=== PATIENT | male | born 1975 | race Caucasian/White ===

== ENCOUNTER 2018-07-30 13:58 | Emergency (ER) | payer OTHER, SELFPAY ==
[2018-07-30 14:04] VITALS: BP 140/94; PULSE 56; RESP 18; TEMP 36.7; O2SAT 100; BMI 27.8
--- NOTE | 2018-07-30 14:50 | DI.RAD.S_ITS ---
PROCEDURE: XR CHEST 1V INDICATIONS: chest pain TECHNIQUE: One view of the chest was acquired. COMPARISON: None. FINDINGS: Surgical changes and devices: None. Lungs and pleura: Lungs are clear. No pleural effusions or pneumothorax. Mediastinum: Mediastinal contours appear normal. Heart size is normal. Bones and chest wall: No suspicious bony lesions. Overlying soft tissues appear unremarkable. IMPRESSION: No evidence acute pulmonary process. Dictated by: Declan Gates M.D. on 07/30/2018 at 15:22 Approved by: Declan Gates M.D. on 07/30/2018 at 15:23
[2018-07-30 14:56] LABS: Add Manual Diff / Slide Review NO; Basophils Absolute Auto 100 /uL (0-100); Basophils Percent Auto 0.9 % (0-2); Eosinophils Absolute Auto 100 /uL (0-450); Eosinophils Percent Auto 1.9 % (2-4); Hematocrit 46.6 % (41-53); Hemoglobin 15.8 g/dL (13.5-17.5); Lymphocytes Absolute Auto 2500 /uL (1100-4500); Lymphocytes Percent Auto 32.6 % (25-40); Mean Corpuscular HGB Conc 33.8 % (30-36); Mean Corpuscular Hemoglobin 29.7 PG (26-34); Mean Corpuscular Volume 87.8 fL (80-100); Monocytes Absolute Auto 800 /uL (0-900); Monocytes Percent Auto 10.2 % (3-14); Neutrophils Absolute Auto 4200 /uL (1500-7000); Neutrophils Percent Auto 54.4 % (50-75); Platelet Count 295 X10^3/uL (150-400); Red Blood Cell Count 5.31 X10^6/uL (4.5-5.9); Red Cell Distribution Width 13.4 % (11.6-14.8); White Blood Cell Count 7.8 X10^3/uL (4.5-11.0)
[2018-07-30 14:57] LABS: Prothrombin Time 11.9 SECONDS (10.1-12.7)
[2018-07-30] MEDS: ASPIRIN 81 MG TAB 324 MG PO (14:58)
[2018-07-30 15:00] LABS: PTT Partial Thromboplastin Tim 27 SECONDS (26.4-36.2)
[2018-07-30 15:01] LABS: Alanine Aminotransferase 62 IU/L (21-72); Albumin 5.1 g/dL (3.5-5.0); Albumin Globulin Ratio 1.5 (1.0-2.8); Alkaline Phosphatase 51 U/L (38-126); Amylase 79 U/L (30-110); Aspartate Aminotransferase 40 IU/L (17-59); BUN Creatinine Ratio 21.3 (6-22); Bilirubin Total 0.8 mg/dL (0.2-1.3); Blood Urea Nitrogen 17 mg/dL (9-20); Calcium 10.1 mg/dL (8.4-10.2); Carbon Dioxide 29 mmol/L (22-32); Chloride 100 mmol/L (98-107); Estimated Glomerular Filt Rate > 60.0 mL/min (>60); Globulin 3.5 g/dL (1.7-4.1); Glucose 81 mg/dL (70-100); HEMOLYSIS < 15 (0-50); Lipase 71 U/L (23-300); Sodium 139 mmol/L (137-145); Total Protein 8.6 g/dL (6.3-8.2)
--- NOTE | 2018-07-30 15:04 | ED.CHESTPAIN ---
HPI - Chest Pain <MALCOLM Rosenthal - Last Filed: 07/30/18 18:34> General Chief Complaint: Chest Pain Stated Complaint: CHEST PAIN Time Seen by Provider: 07/30/18 14:30 Source: patient and family Mode of arrival: ambulatory Limitations: no limitations History of Present Illness HPI narrative: Patient is a 42-year-old male nonsmoker presents with his for chief complaint of chest pain. he was evaluated by [facility] as he had pain in his jaw chest and left shoulder at 9:30 a.m. this morning. This happened immediately after intercourse. He states he felt woozy, sweaty, and lightheaded for a few minutes. He states he is essentially pain-free in the emergency department. He has never had any episodes like this before. He is being treated for high blood pressure and anxiety. He wonders if he had an anxiety attack. He denies any shortness of breath, palpitations or swelling of his extremities. Related Data Home Medications Medication Instructions Recorded Confirmed atenolol 50 mg PO DAILY 07/30/18 07/30/18 Previous Rx's Medication Instructions Recorded citalopram [Celexa] 20 mg PO QDAY #90 tab 08/27/16 Allergies Allergy/AdvReac Type Severity Reaction Status Date / Time bee venom protein (honey bee) Allergy Severe Anaphylaxis Verified 07/30/18 15:00 [BEE VENOM PROTEIN (HONEY BEE)] Review of Systems <[facility] - Last Filed: 07/30/18 18:34> Review of Systems GENERAL: Denies chills, fatigue, malaise, fever, sweats. HEENT: Denies sinus pain, ear pain, sore throat, difficulty swallowing, dizziness. RESPIRATORY: Denies dyspnea, cough, wheezing, hemoptysis, sputum. CARDIOVASCULAR: See HPI GASTROINTESTINAL: Denies nausea, vomiting, abdominal pain, diarrhea, constipation, melena. : Denies dysuria, frequency, incontinence, hematuria, urinary retention. MUSCULOSKELETAL: denies weakness, joint pain, or bony pain SKIN: Denies rash, skin lesions, or other NEUROLOGIC: Denies weakness, headache, numbness, change in speech, confusion, seizures, incoordination. PSYCHIATRIC: No concerning psychosocial issues. 12 point review of systems is negative except for those stated above Exam <MALCOLM Rosenthal - Last Filed: 07/30/18 18:34> Narrative Exam Narrative: GENERAL: This is a well-nourished, well-developed patient, lying on stretcher HEAD: Atraumatic. Normocephalic. No temporal or scalp tenderness. EYES: Pupils equal round and reactive. Extraocular motions intact. No scleral icterus. No injection or drainage. ENT: Nose without bleeding, purulent drainage or septal hematoma. Throat without erythema, tonsillar hypertrophy or exudate. Uvula midline. Airway patent. NECK: Trachea midline. No JVD or lymphadenopathy. Supple, nontender, no meningeal signs. CARDIOVASCULAR: Regular rate and rhythm without murmurs, gallops, or rubs. RESPIRATORY: Clear to auscultation. Breath sounds equal bilaterally. No wheezes, rales, or rhonchi. No cough. No increased respiratory effort. GASTROINTESTINAL: Abdomen soft, non-tender, nondistended. No hepato-splenomegaly, or palpable masses. No guarding. active bowel sounds all 4 quadrants. No palpable pulsatile masses. EXTREMITIES: No clubbing, cyanosis, or edema. No joint tenderness, effusion, or edema noted. BACK: Nontender without deformity or crepitance. No flank tenderness. NEURO: AOx3. Using all extremities bilaterally. SKIN: No rash or erythema. Initial Vital Signs Initial Vital Signs: Vital Signs Temperature 98.1 F 07/30/18 14:04 Pulse Rate 56 L 07/30/18 14:04 Respiratory Rate 18 07/30/18 14:04 Blood Pressure 140/94 H 07/30/18 14:04 Pulse Oximetry 100 07/30/18 14:04 <Nidhi Nelson DO - Last Filed: 07/31/18 07:42> Initial Vital Signs Initial Vital Signs: Vital Signs Temperature 98.1 F 07/30/18 14:04 Pulse Rate 56 L 07/30/18 14:04 Respiratory Rate 18 07/30/18 14:04 Blood Pressure 140/94 H 07/30/18 14:04 Pulse Oximetry 100 07/30/18 14:04 Course <AMADOR Rosenthal-BC - Last Filed: 07/30/18 18:34> Orders Ordered: Discontinued Medications Aspirin (Aspirin Chew) 324 mg PO NOW ONE Stop: 07/30/18 14:51 Last Admin: 07/30/18 14:58 Dose: 324 mg Heparin Sodium (Porcine) (Heparin) 5,000 unit IV NOW ONE Stop: 07/30/18 15:58 Last Admin: 07/30/18 16:23 Dose: 5,000 unit Heparin Sodium/Dextrose (Heparin Drip) 25,000 unit in 500 mls @ 20 mls/hr IV CONT MARSHA; Protocol Last Titration: 07/30/18 18:32 Dose: 0 units/hr, 0 mls/hr Admin: 07/30/18 16:22 Dose: 1,000 units/hr, 20 mls/hr Sodium Chloride (Normal Saline 0.9%) 1,000 mls @ 100 mls/hr IV CONT MARSHA Last Infusion: 07/30/18 18:33 Dose: 0 mls/hr Admin: 07/30/18 16:22 Dose: 100 mls/hr Reevaluation(s) Reevaluation #1: I spoke with the patient regarding his positive cardiac enzymes, plan for transfer, concern for [place]. Patient had no questions or concerns. States he has no pain at this point time. Time: 16:00 Consultations Consultation #1: I spoke with Dr. Weber from [facility] regarding patient's need for cardiac care and transfer. Time: 16:13 Vital Signs - 8 hr 07/30/18 14:04 07/30/18 16:30 07/30/18 17:30 Temperature 98.1 F Pulse Rate 56 L 59 L 58 L Respiratory Rate 18 11 L 14 Blood Pressure 140/94 H Blood Pressure [Right Arm] 126/87 128/84 Pulse Oximetry 100 99 98 07/30/18 18:00 Temperature Pulse Rate 59 L Respiratory Rate 20 Blood Pressure Blood Pressure [Right Arm] 133/92 H Pulse Oximetry 98 <Nidhi Nelson DO - Last Filed: 07/31/18 07:42> Orders Ordered: Discontinued Medications Aspirin (Aspirin Chew) 324 mg PO NOW ONE Stop: 07/30/18 14:51 Last Admin: 07/30/18 14:58 Dose: 324 mg Heparin Sodium (Porcine) (Heparin) 5,000 unit IV NOW ONE Stop: 07/30/18 15:58 Last Admin: 07/30/18 16:23 Dose: 5,000 unit Heparin Sodium/Dextrose (Heparin Drip) 25,000 unit in 500 mls @ 20 mls/hr IV CONT MARSHA; Protocol Last Titration: 07/30/18 18:32 Dose: 0 units/hr, 0 mls/hr Admin: 07/30/18 16:22 Dose: 1,000 units/hr, 20 mls/hr Sodium Chloride (Normal Saline 0.9%) 1,000 mls @ 100 mls/hr IV CONT MARSHA Last Infusion: 07/30/18 18:33 Dose: 0 mls/hr Admin: 07/30/18 16:22 Dose: 100 mls/hr Vital Signs - 8 hr 07/30/18 14:04 07/30/18 16:30 07/30/18 17:30 Temperature 98.1 F Pulse Rate 56 L 59 L 58 L Respiratory Rate 18 11 L 14 Blood Pressure 140/94 H Blood Pressure [Right Arm] 126/87 128/84 Pulse Oximetry 100 99 98 07/30/18 18:00 Temperature Pulse Rate 59 L Respiratory Rate 20 Blood Pressure Blood Pressure [Right Arm] 133/92 H Pulse Oximetry 98 MDM - Chest Pain <AMADOR Rosenthal- - Last Filed: 07/30/18 18:34> Lab Data Result diagrams: 07/30/18 14:35 07/30/18 14:35 Lab Results 07/30/18 07/30/18 07/30/18 Range/Units 14:35 14:35 14:35 WBC 7.8 (4.5-11.0) X10^3/uL RBC 5.31 (4.5-5.9) X10^6/uL Hgb 15.8 (13.5-17.5) g/dL Hct 46.6 (41-53) % MCV 87.8 (80-100) fL MCH 29.7 (26-34) PG MCHC 33.8 (30-36) % RDW 13.4 (11.6-14.8) % Plt Count 295 (150-400) X10^3/uL Neut % (Auto) 54.4 (50-75) % Lymph % (Auto) 32.6 (25-40) % [place] % (Auto) 10.2 (3-14) % Eos % (Auto) 1.9 L (2-4) % Baso % (Auto) 0.9 (0-2) % Neut # (Auto) 4200 (6920-7275) /uL Lymph # (Auto) 2500 (8293-3295) /uL [place] # (Auto) 800 (0-900) /uL Eos # (Auto) 100 (0-450) /uL Baso # (Auto) 100 (0-100) /uL PT 11.9 (10.1-12.7) SECONDS INR 1.0 (0.9-1.3) APTT 27 (26.4-36.2) SECONDS Sodium 139 (137-145) mmol/L Potassium 5.0 (3.4-5.1) mmol/L Chloride 100 (98-107) mmol/L Carbon Dioxide 29 (22-32) mmol/L BUN 17 (9-20) mg/dL Creatinine 0.80 (0.66-1.25) mg/dL Estimated GFR > 60.0 (>60) mL/min BUN/Creatinine Ratio 21.3 (6-22) Glucose 81 (70-100) mg/dL Calcium 10.1 (8.4-10.2) mg/dL Total Bilirubin 0.8 (0.2-1.3) mg/dL AST 40 (17-59) IU/L ALT 62 (21-72) IU/L Alkaline Phosphatase 51 (38-126) U/L Total Creatine Kinase (55-170) U/L CK-MB (CK-2) 4.95 H (<2.37) ng/mL CK-MB (CK-2) Rel Index 3.2 (1.5-5.0) % Troponin I 1.080 H* (0.01-0.034) ng/mL Total Protein 8.6 H (6.3-8.2) g/dL Albumin 5.1 H (3.5-5.0) g/dL Globulin 3.5 (1.7-4.1) g/dL Albumin/Globulin Ratio 1.5 (1.0-2.8) Amylase 79 (30-110) U/L Lipase 71 (23-300) U/L 07/30/18 07/30/18 Range/Units 14:35 15:35 WBC (4.5-11.0) X10^3/uL RBC (4.5-5.9) X10^6/uL Hgb (13.5-17.5) g/dL Hct (41-53) % MCV (80-100) fL MCH (26-34) PG MCHC (30-36) % RDW (11.6-14.8) % Plt Count (150-400) X10^3/uL Neut % (Auto) (50-75) % Lymph % (Auto) (25-40) % [place] % (Auto) (3-14) % Eos % (Auto) (2-4) % Baso % (Auto) (0-2) % Neut # (Auto) (6668-8342) /uL Lymph # (Auto) (2571-9617) /uL [place] # (Auto) (0-900) /uL Eos # (Auto) (0-450) /uL Baso # (Auto) (0-100) /uL PT (10.1-12.7) SECONDS INR (0.9-1.3) APTT 27 (26.4-36.2) SECONDS Sodium (137-145) mmol/L Potassium (3.4-5.1) mmol/L Chloride (98-107) mmol/L Carbon Dioxide (22-32) mmol/L BUN (9-20) mg/dL Creatinine (0.66-1.25) mg/dL Estimated GFR (>60) mL/min BUN/Creatinine Ratio (6-22) Glucose (70-100) mg/dL Calcium (8.4-10.2) mg/dL Total Bilirubin (0.2-1.3) mg/dL AST (17-59) IU/L ALT (21-72) IU/L Alkaline Phosphatase (38-126) U/L Total Creatine Kinase 156 (55-170) U/L CK-MB (CK-2) 6.01 H (<2.37) ng/mL CK-MB (CK-2) Rel Index 3.9 (1.5-5.0) % Troponin I 1.580 H* (0.01-0.034) ng/mL Total Protein (6.3-8.2) g/dL Albumin (3.5-5.0) g/dL Globulin (1.7-4.1) g/dL Albumin/Globulin Ratio (1.0-2.8) Amylase (30-110) U/L Lipase (23-300) U/L Urine Dip Bedside Urine Glucose Negative Bedside Urine Bilirubin - Negative Bedside Urine Ketone - Negative Urine Specific [place] 1.020 Bedside Urine Occult Blood - Negative Bedside Urine pH 6.5 Bedside Urine Protein - Negative Bedside Urine Urobilinogen - Negative Bedside Urine Nitrite - Negative Bedside Urine Leukocytes - Negative Esterase ECG Data Attestation: I personally reviewed and interpreted this ECG as follows: Interpretation: 14:05 Sinus bradycardia. Ventricular rate 56. No ectopy noted. No ST elevation or depression noted. viewed by Omar. 15:58 sinus bradycardia. Ventricular rate 53. No ST elevation or depression. No ectopy noted.viewed by Omar MDM Narrative Medical decision making narrative: The patient is a 42-year-old male who presents with post coital episode of chest pain joint pain and back pain. He had a normal EKG. However he had a positive troponin at 1.080. At that point he had a repeat EKG, which continued to show no ST elevation or depression. Given his elevated troponin, risk factor of hypertension and family history, [facility] was contacted regarding transferring the patient to a facility with cardiac care. I spoke with Dr. Weber. The patient was given aspirin upon arrival to the emergency department. He was given heparin bolus as well as a heparin drip. He remained pain-free throughout his stay in the emergency department. His remained at his bedside. The patient was transferred to [facility] ambulance at 6:30 p.m.. Patient is pain-free at this point time. Troponin increased to 1.5. <Nidhi Nelson, DO - Last Filed: 07/31/18 07:42> Lab Data Attestation: I reviewed the patient's lab results. Lab Results 07/30/18 07/30/18 07/30/18 Range/Units 14:35 14:35 14:35 WBC 7.8 (4.5-11.0) X10^3/uL RBC 5.31 (4.5-5.9) X10^6/uL Hgb 15.8 (13.5-17.5) g/dL Hct 46.6 (41-53) % MCV 87.8 (80-100) fL MCH 29.7 (26-34) PG MCHC 33.8 (30-36) % RDW 13.4 (11.6-14.8) % Plt Count 295 (150-400) X10^3/uL Neut % (Auto) 54.4 (50-75) % Lymph % (Auto) 32.6 (25-40) % [place] % (Auto) 10.2 (3-14) % Eos % (Auto) 1.9 L (2-4) % Baso % (Auto) 0.9 (0-2) % Neut # (Auto) 4200 (4478-7683) /uL Lymph # (Auto) 2500 (9993-6053) /uL [place] # (Auto) 800 (0-900) /uL Eos # (Auto) 100 (0-450) /uL Baso # (Auto) 100 (0-100) /uL PT 11.9 (10.1-12.7) SECONDS INR 1.0 (0.9-1.3) APTT 27 (26.4-36.2) SECONDS Sodium 139 (137-145) mmol/L Potassium 5.0 (3.4-5.1) mmol/L Chloride 100 (98-107) mmol/L Carbon Dioxide 29 (22-32) mmol/L BUN 17 (9-20) mg/dL Creatinine 0.80 (0.66-1.25) mg/dL Estimated GFR > 60.0 (>60) mL/min BUN/Creatinine Ratio 21.3 (6-22) Glucose 81 (70-100) mg/dL Calcium 10.1 (8.4-10.2) mg/dL Total Bilirubin 0.8 (0.2-1.3) mg/dL AST 40 (17-59) IU/L ALT 62 (21-72) IU/L Alkaline Phosphatase 51 (38-126) U/L Total Creatine Kinase (55-170) U/L CK-MB (CK-2) 4.95 H (<2.37) ng/mL CK-MB (CK-2) Rel Index 3.2 (1.5-5.0) % Troponin I 1.080 H* (0.01-0.034) ng/mL Total Protein 8.6 H (6.3-8.2) g/dL Albumin 5.1 H (3.5-5.0) g/dL Globulin 3.5 (1.7-4.1) g/dL Albumin/Globulin Ratio 1.5 (1.0-2.8) Amylase 79 (30-110) U/L Lipase 71 (23-300) U/L 07/30/18 07/30/18 Range/Units 14:35 15:35 WBC (4.5-11.0) X10^3/uL RBC (4.5-5.9) X10^6/uL Hgb (13.5-17.5) g/dL Hct (41-53) % MCV (80-100) fL MCH (26-34) PG MCHC (30-36) % RDW (11.6-14.8) % Plt Count (150-400) X10^3/uL Neut % (Auto) (50-75) % Lymph % (Auto) (25-40) % [place] % (Auto) (3-14) % Eos % (Auto) (2-4) % Baso % (Auto) (0-2) % Neut # (Auto) (9698-7044) /uL Lymph # (Auto) (7782-8165) /uL [place] # (Auto) (0-900) /uL Eos # (Auto) (0-450) /uL Baso # (Auto) (0-100) /uL PT (10.1-12.7) SECONDS INR (0.9-1.3) APTT 27 (26.4-36.2) SECONDS Sodium (137-145) mmol/L Potassium (3.4-5.1) mmol/L Chloride (98-107) mmol/L Carbon Dioxide (22-32) mmol/L BUN (9-20) mg/dL Creatinine (0.66-1.25) mg/dL Estimated GFR (>60) mL/min BUN/Creatinine Ratio (6-22) Glucose (70-100) mg/dL Calcium (8.4-10.2) mg/dL Total Bilirubin (0.2-1.3) mg/dL AST (17-59) IU/L ALT (21-72) IU/L Alkaline Phosphatase (38-126) U/L Total Creatine Kinase 156 (55-170) U/L CK-MB (CK-2) 6.01 H (<2.37) ng/mL CK-MB (CK-2) Rel Index 3.9 (1.5-5.0) % Troponin I 1.580 H* (0.01-0.034) ng/mL Total Protein (6.3-8.2) g/dL Albumin (3.5-5.0) g/dL Globulin (1.7-4.1) g/dL Albumin/Globulin Ratio (1.0-2.8) Amylase (30-110) U/L Lipase (23-300) U/L Urine Dip Bedside Urine Glucose Negative Bedside Urine Bilirubin - Negative Bedside Urine Ketone - Negative Urine Specific [place] 1.020 Bedside Urine Occult Blood - Negative Bedside Urine pH 6.5 Bedside Urine Protein - Negative Bedside Urine Urobilinogen - Negative Bedside Urine Nitrite - Negative Bedside Urine Leukocytes - Negative Esterase Imaging Data Chest x-ray: Radiologist's impression: PROCEDURE: XR CHEST 1V INDICATIONS: chest pain TECHNIQUE: One view of the chest was acquired. COMPARISON: None. FINDINGS: Surgical changes and devices: None. Lungs and pleura: Lungs are clear. No pleural effusions or pneumothorax. Mediastinum: Mediastinal contours appear normal. Heart size is normal. Bones and chest wall: No suspicious bony lesions. Overlying soft tissues appear unremarkable. IMPRESSION: No evidence acute pulmonary process. Dictated by: Declan Gates M.D. on 07/30/2018 at 15:22 ECG Data Attestation: I personally reviewed and interpreted this ECG as follows: Interpretation: EKG 1. Sinus rhythm rate [address] changes no T-wave inversions low voltage noted in lead 3 and AVF EKG 2. Sinus rhythm rate 53 similar to prior no ST changes Discharge Plan Departure Patient Disposition: [facility] Clinical Impression: Acute non-ST elevation myocardial infarction (NSTEMI) Discharge Date/Time: 07/30/18 18:46 Interventions: ED Discharge Assessment Last Done: 07/30/18 18:44 Prescriptions: No Action citalopram [Celexa] 20 MG tablet 20 mg PO QDAY Qty: 90 RF: 3 atenolol 50 mg Tablet 50 mg PO DAILY RF: 0 <Nidhi Nelson DO - Last Filed: 07/31/18 07:42> Cosign ED Attending Coskaciature Attestation: I was immediately available in the department for consultation. Documentation has been reviewed. I agree with assessment and plan. I worked alongside Pippa Monroy. Patient's signs and symptoms were concerning. Troponin is positive, then repeat troponin was rising. Patient was started on heparin and given aspirin. Transferred to [facility] per [facility]. Patient remained stable while in the EDAnd chest pain free.
--- NOTE | 2018-07-30 15:08 | ED_ITS ---
HPI - Chest Pain <YOVANA Rosenthal - Last Filed: 07/30/18 18:34> General Chief Complaint: Chest Pain Stated Complaint: CHEST PAIN Time Seen by Provider: 07/30/18 14:30 Source: patient and family Mode of arrival: ambulatory Limitations: no limitations History of Present Illness HPI narrative: Patient is a 42-year-old male nonsmoker presents with his for chief complaint of chest pain. he was evaluated by [facility] as he had pain in his jaw chest and left shoulder at 9:30 a.m. this morning. This happened immediately after intercourse. He states he felt woozy, sweaty, and lightheaded for a few minutes. He states he is essentially pain-free in the emergency department. He has never had any episodes like this before. He is being treated for high blood pressure and anxiety. He wonders if he had an anxiety attack. He denies any shortness of breath, palpitations or swelling of his extremities. Related Data Home Medications Medication Instructions Recorded Confirmed atenolol 50 mg PO DAILY 07/30/18 07/30/18 Previous Rx's Medication Instructions Recorded citalopram [Celexa] 20 mg PO QDAY #90 tab 08/27/16 Allergies Allergy/AdvReac Type Severity Reaction Status Date / Time bee venom protein (honey bee) Allergy Severe Anaphylaxis Verified 07/30/18 15:00 [BEE VENOM PROTEIN (HONEY BEE)] Review of Systems <MALCOLM Rosenthal - Last Filed: 07/30/18 18:34> Review of Systems GENERAL: Denies chills, fatigue, malaise, fever, sweats. HEENT: Denies sinus pain, ear pain, sore throat, difficulty swallowing, dizzines s. RESPIRATORY: Denies dyspnea, cough, wheezing, hemoptysis, sputum. CARDIOVASCULAR: See HPI GASTROINTESTINAL: Denies nausea, vomiting, abdominal pain, diarrhea, constipation, melena. : Denies dysuria, frequency, incontinence, hematuria, urinary retention. MUSCULOSKELETAL: denies weakness, joint pain, or bony pain SKIN: Denies rash, skin lesions, or other NEUROLOGIC: Denies weakness, headache, numbness, change in speech, confusion, seizures, incoordination. PSYCHIATRIC: No concerning psychosocial issues. 12 point review of systems is negative except for those stated above Exam <YOVANA Rosenthal - Last Filed: 07/30/18 18:34> Narrative Exam Narrative: GENERAL: This is a well-nourished, well-developed patient, lying on stretcher HEAD: Atraumatic. Normocephalic. No temporal or scalp tenderness. EYES: Pupils equal round and reactive. Extraocular motions intact. No scleral icterus. No injection or drainage. ENT: Nose without bleeding, purulent drainage or septal hematoma. Throat without erythema, tonsillar hypertrophy or exudate. Uvula midline. Airway patent. NECK: Trachea midline. No JVD or lymphadenopathy. Supple, nontender, no meningeal signs. CARDIOVASCULAR: Regular rate and rhythm without murmurs, gallops, or rubs. RESPIRATORY: Clear to auscultation. Breath sounds equal bilaterally. No wheezes, rales, or rhonchi. No cough. No increased respiratory effort. GASTROINTESTINAL: Abdomen soft, non-tender, nondistended. No hepato- splenomegaly, or palpable masses. No guarding. active bowel sounds all 4 quadrants. No palpable pulsatile masses. EXTREMITIES: No clubbing, cyanosis, or edema. No joint tenderness, effusion, or edema noted. BACK: Nontender without deformity or crepitance. No flank tenderness. NEURO: AOx3. Using all extremities bilaterally. SKIN: No rash or erythema. Initial Vital Signs Initial Vital Signs: Vital Signs Temperature 98.1 F 07/30/18 14:04 Pulse Rate 56 L 07/30/18 14:04 Respiratory Rate 18 07/30/18 14:04 Blood Pressure 140/94 H 07/30/18 14:04 Pulse Oximetry 100 07/30/18 14:04 <Nidhi Nelson DO - Last Filed: 07/31/18 07:42> Initial Vital Signs Initial Vital Signs: Vital Signs Temperature 98.1 F 07/30/18 14:04 Pulse Rate 56 L 07/30/18 14:04 Respiratory Rate 18 07/30/18 14:04 Blood Pressure 140/94 H 07/30/18 14:04 Pulse Oximetry 100 07/30/18 14:04 Course <YOVANA Rosenthal - Last Filed: 07/30/18 18:34> Orders Ordered: Discontinued Medications Aspirin (Aspirin Chew) 324 mg PO NOW ONE Stop: 07/30/18 14:51 Last Admin: 07/30/18 14:58 Dose: 324 mg Heparin Sodium (Porcine) (Heparin) 5,000 unit IV NOW ONE Stop: 07/30/18 15:58 Last Admin: 07/30/18 16:23 Dose: 5,000 unit Heparin Sodium/Dextrose (Heparin Drip) 25,000 unit in 500 mls @ 20 mls/hr IV CONT MARSHA; Protocol Last Titration: 07/30/18 18:32 Dose: 0 units/hr, 0 mls/hr Admin: 07/30/18 16:22 Dose: 1,000 units/hr, 20 mls/hr Sodium Chloride (Normal Saline 0.9%) 1,000 mls @ 100 mls/hr IV CONT MARSHA Last Infusion: 07/30/18 18:33 Dose: 0 mls/hr Admin: 07/30/18 16:22 Dose: 100 mls/hr Reevaluation(s) Reevaluation #1: I spoke with the patient regarding his positive cardiac enzymes, plan for transfer, concern for [place]. Patient had no questions or concerns. States he has no pain at this point time. Time: 16:00 Consultations Consultation #1: I spoke with Dr. Weber from [facility] regarding patient's need for cardiac care and transfer. Time: 16:13 Vital Signs - 8 hr 07/30/18 14:04 07/30/18 16:30 07/30/18 17:30 Temperature 98.1 F Pulse Rate 56 L 59 L 58 L Respiratory Rate 18 11 L 14 Blood Pressure 140/94 H Blood Pressure [Right Arm] 126/87 128/84 Pulse Oximetry 100 99 98 07/30/18 18:00 Temperature Pulse Rate 59 L Respiratory Rate 20 Blood Pressure Blood Pressure [Right Arm] 133/92 H Pulse Oximetry 98 <Nidhi Nelson DO - Last Filed: 07/31/18 07:42> Orders Ordered: Discontinued Medications Aspirin (Aspirin Chew) 324 mg PO NOW ONE Stop: 07/30/18 14:51 Last Admin: 07/30/18 14:58 Dose: 324 mg Heparin Sodium (Porcine) (Heparin) 5,000 unit IV NOW ONE Stop: 07/30/18 15:58 Last Admin: 07/30/18 16:23 Dose: 5,000 unit Heparin Sodium/Dextrose (Heparin Drip) 25,000 unit in 500 mls @ 20 mls/hr IV CONT MARSHA; Protocol Last Titration: 07/30/18 18:32 Dose: 0 units/hr, 0 mls/hr Admin: 07/30/18 16:22 Dose: 1,000 units/hr, 20 mls/hr Sodium Chloride (Normal Saline 0.9%) 1,000 mls @ 100 mls/hr IV CONT MARSHA Last Infusion: 07/30/18 18:33 Dose: 0 mls/hr Admin: 07/30/18 16:22 Dose: 100 mls/hr Vital Signs - 8 hr 07/30/18 14:04 07/30/18 16:30 07/30/18 17:30 Temperature 98.1 F Pulse Rate 56 L 59 L 58 L Respiratory Rate 18 11 L 14 Blood Pressure 140/94 H Blood Pressure [Right Arm] 126/87 128/84 Pulse Oximetry 100 99 98 07/30/18 18:00 Temperature Pulse Rate 59 L Respiratory Rate 20 Blood Pressure Blood Pressure [Right Arm] 133/92 H Pulse Oximetry 98 MDM - Chest Pain <AMADOR Rosenthal- - Last Filed: 07/30/18 18:34> Lab Data Result diagrams: 07/30/18 14:35 07/30/18 14:35 Lab Results 07/30/18 07/30/18 07/30/18 Range/Units 14:35 14:35 14:35 WBC 7.8 (4.5-11.0) X10^3/uL RBC 5.31 (4.5-5.9) X10^6/uL Hgb 15.8 (13.5-17.5) g/dL Hct 46.6 (41-53) % MCV 87.8 (80-100) fL MCH 29.7 (26-34) PG MCHC 33.8 (30-36) % RDW 13.4 (11.6-14.8) % Plt Count 295 (150-400) X10^3/uL Neut % (Auto) 54.4 (50-75) % Lymph % (Auto) 32.6 (25-40) % Mclennan % (Auto) 10.2 (3-14) % Eos % (Auto) 1.9 L (2-4) % Baso % (Auto) 0.9 (0-2) % Neut # (Auto) 4200 (7270-7340) /uL Lymph # (Auto) 2500 (4554-4757) /uL Mclennan # (Auto) 800 (0-900) /uL Eos # (Auto) 100 (0-450) /uL Baso # (Auto) 100 (0-100) /uL PT 11.9 (10.1-12.7) SECONDS INR 1.0 (0.9-1.3) APTT 27 (26.4-36.2) SECONDS Sodium 139 (137-145) mmol/L Potassium 5.0 (3.4-5.1) mmol/L Chloride 100 (98-107) mmol/L Carbon Dioxide 29 (22-32) mmol/L BUN 17 (9-20) mg/dL Creatinine 0.80 (0.66-1.25) mg/dL Estimated GFR > 60.0 (>60) mL/min BUN/Creatinine Ratio 21.3 (6-22) Glucose 81 (70-100) mg/dL Calcium 10.1 (8.4-10.2) mg/dL Total Bilirubin 0.8 (0.2-1.3) mg/dL AST 40 (17-59) IU/L ALT 62 (21-72) IU/L Alkaline Phosphatase 51 (38-126) U/L Total Creatine Kinase (55-170) U/L CK-MB (CK-2) 4.95 H (<2.37) ng/mL CK-MB (CK-2) Rel Index 3.2 (1.5-5.0) % Troponin I 1.080 H* (0.01-0.034) ng/mL Total Protein 8.6 H (6.3-8.2) g/dL Albumin 5.1 H (3.5-5.0) g/dL Globulin 3.5 (1.7-4.1) g/dL Albumin/Globulin Ratio 1.5 (1.0-2.8) Amylase 79 (30-110) U/L Lipase 71 (23-300) U/L 07/30/18 07/30/18 Range/Units 14:35 15:35 WBC (4.5-11.0) X10^3/uL RBC (4.5-5.9) X10^6/uL Hgb (13.5-17.5) g/dL Hct (41-53) % MCV (80-100) fL MCH (26-34) PG MCHC (30-36) % RDW (11.6-14.8) % Plt Count (150-400) X10^3/uL Neut % (Auto) (50-75) % Lymph % (Auto) (25-40) % Mclennan % (Auto) (3-14) % Eos % (Auto) (2-4) % Baso % (Auto) (0-2) % Neut # (Auto) (7639-2775) /uL Lymph # (Auto) (5332-5384) /uL Mclennan # (Auto) (0-900) /uL Eos # (Auto) (0-450) /uL Baso # (Auto) (0-100) /uL PT (10.1-12.7) SECONDS INR (0.9-1.3) APTT 27 (26.4-36.2) SECONDS Sodium (137-145) mmol/L Potassium (3.4-5.1) mmol/L Chloride (98-107) mmol/L Carbon Dioxide (22-32) mmol/L BUN (9-20) mg/dL Creatinine (0.66-1.25) mg/dL Estimated GFR (>60) mL/min BUN/Creatinine Ratio (6-22) Glucose (70-100) mg/dL Calcium (8.4-10.2) mg/dL Total Bilirubin (0.2-1.3) mg/dL AST (17-59) IU/L ALT (21-72) IU/L Alkaline Phosphatase (38-126) U/L Total Creatine Kinase 156 (55-170) U/L CK-MB (CK-2) 6.01 H (<2.37) ng/mL CK-MB (CK-2) Rel Index 3.9 (1.5-5.0) % Troponin I 1.580 H* (0.01-0.034) ng/mL Total Protein (6.3-8.2) g/dL Albumin (3.5-5.0) g/dL Globulin (1.7-4.1) g/dL Albumin/Globulin Ratio (1.0-2.8) Amylase (30-110) U/L Lipase (23-300) U/L Urine Dip Bedside Urine Glucose Negative Bedside Urine Bilirubin - Negative Bedside Urine Ketone - Negative Urine Specific Dunmore 1.020 Bedside Urine Occult Blood - Negative Bedside Urine pH 6.5 Bedside Urine Protein - Negative Bedside Urine Urobilinogen - Negative Bedside Urine Nitrite - Negative Bedside Urine Leukocytes - Negative Esterase ECG Data Attestation: I personally reviewed and interpreted this ECG as follows: Interpretation: 14:05 Sinus bradycardia. Ventricular rate 56. No ectopy noted. No ST elevation or depression noted. viewed by Omar. 15:58 sinus bradycardia. Ventricular rate 53. No ST elevation or depression. No ectopy noted.viewed by Omar MDM Narrative Medical decision making narrative: The patient is a 42-year-old male who presents with post coital episode of chest pain joint pain and back pain. He had a normal EKG. However he had a positive troponin at 1.080. At that point he had a repeat EKG, which continued to show no ST elevation or depression. Given his elevated troponin, risk factor of hypertension and family history, [facility] was contacted regarding transferring the patient to a facility with cardiac care. I spoke with Dr. Weber. The patient was given aspirin upon arrival to the emergency department. He was given heparin bolus as well as a h eparin drip. He remained pain-free throughout his stay in the emergency department. His remained at his bedside. The patient was transferred to [facility] ambulance at 6:30 p.m.. Patient is pain-free at this point time. Troponin increased to 1.5. <Nidhi Nelson, DO - Last Filed: 07/31/18 07:42> Lab Data Attestation: I reviewed the patient's lab results. Lab Results 07/30/18 07/30/18 07/30/18 Range/Units 14:35 14:35 14:35 WBC 7.8 (4.5-11.0) X10^3/uL RBC 5.31 (4.5-5.9) X10^6/uL Hgb 15.8 (13.5-17.5) g/dL Hct 46.6 (41-53) % MCV 87.8 (80-100) fL MCH 29.7 (26-34) PG MCHC 33.8 (30-36) % RDW 13.4 (11.6-14.8) % Plt Count 295 (150-400) X10^3/uL Neut % (Auto) 54.4 (50-75) % Lymph % (Auto) 32.6 (25-40) % Mclennan % (Auto) 10.2 (3-14) % Eos % (Auto) 1.9 L (2-4) % Baso % (Auto) 0.9 (0-2) % Neut # (Auto) 4200 (6659-5287) /uL Lymph # (Auto) 2500 (5048-9573) /uL Mclennan # (Auto) 800 (0-900) /uL Eos # (Auto) 100 (0-450) /uL Baso # (Auto) 100 (0-100) /uL PT 11.9 (10.1-12.7) SECONDS INR 1.0 (0.9-1.3) APTT 27 (26.4-36.2) SECONDS Sodium 139 (137-145) mmol/L Potassium 5.0 (3.4-5.1) mmol/L Chloride 100 (98-107) mmol/L Carbon Dioxide 29 (22-32) mmol/L BUN 17 (9-20) mg/dL Creatinine 0.80 (0.66-1.25) mg/dL Estimated GFR > 60.0 (>60) mL/min BUN/Creatinine Ratio 21.3 (6-22) Glucose 81 (70-100) mg/dL Calcium 10.1 (8.4-10.2) mg/dL Total Bilirubin 0.8 (0.2-1.3) mg/dL AST 40 (17-59) IU/L ALT 62 (21-72) IU/L Alkaline Phosphatase 51 (38-126) U/L Total Creatine Kinase (55-170) U/L CK-MB (CK-2) 4.95 H (<2.37) ng/mL CK-MB (CK-2) Rel Index 3.2 (1.5-5.0) % Troponin I 1.080 H* (0.01-0.034) ng/mL Total Protein 8.6 H (6.3-8.2) g/dL Albumin 5.1 H (3.5-5.0) g/dL Globulin 3.5 (1.7-4.1) g/dL Albumin/Globulin Ratio 1.5 (1.0-2.8) Amylase 79 (30-110) U/L Lipase 71 (23-300) U/L 07/30/18 07/30/18 Range/Units 14:35 15:35 WBC (4.5-11.0) X10^3/uL RBC (4.5-5.9) X10^6/uL Hgb (13.5-17.5) g/dL Hct (41-53) % MCV (80-100) fL MCH (26-34) PG MCHC (30-36) % RDW (11.6-14.8) % Plt Count (150-400) X10^3/uL Neut % (Auto) (50-75) % Lymph % (Auto) (25-40) % Mclennan % (Auto) (3-14) % Eos % (Auto) (2-4) % Baso % (Auto) (0-2) % Neut # (Auto) (9934-2909) /uL Lymph # (Auto) (9524-6966) /uL Mclennan # (Auto) (0-900) /uL Eos # (Auto) (0-450) /uL Baso # (Auto) (0-100) /uL PT (10.1-12.7) SECONDS INR (0.9-1.3) APTT 27 (26.4-36.2) SECONDS Sodium (137-145) mmol/L Potassium (3.4-5.1) mmol/L Chloride (98-107) mmol/L Carbon Dioxide (22-32) mmol/L BUN (9-20) mg/dL Creatinine (0.66-1.25) mg/dL Estimated GFR (>60) mL/min BUN/Creatinine Ratio (6-22) Glucose (70-100) mg/dL Calcium (8.4-10.2) mg/dL Total Bilirubin (0.2-1.3) mg/dL AST (17-59) IU/L ALT (21-72) IU/L Alkaline Phosphatase (38-126) U/L Total Creatine Kinase 156 (55-170) U/L CK-MB (CK-2) 6.01 H (<2.37) ng/mL CK-MB (CK-2) Rel Index 3.9 (1.5-5.0) % Troponin I 1.580 H* (0.01-0.034) ng/mL Total Protein (6.3-8.2) g/dL Albumin (3.5-5.0) g/dL Globulin (1.7-4.1) g/dL Albumin/Globulin Ratio (1.0-2.8) Amylase (30-110) U/L Lipase (23-300) U/L Urine Dip Bedside Urine Glucose Negative Bedside Urine Bilirubin - Negative Bedside Urine Ketone - Negative Urine Specific Dun[place] 1.020 Bedside Urine Occult Blood - Negative Bedside Urine pH 6.5 Bedside Urine Protein - Negative Bedside Urine Urobilinogen - Negative Bedside Urine Nitrite - Negative Bedside Urine Leukocytes - Negative Esterase Imaging Data Chest x-ray: Radiologist's impression: PROCEDURE: XR CHEST 1V INDICATIONS: chest pain TECHNIQUE: One view of the chest was acquired. COMPARISON: None. FINDINGS: Surgical changes and devices: None. Lungs and pleura: Lungs are clear. No pleural effusions or pneumothorax. Mediastinum: Mediastinal contours appear normal. Heart size is normal. Bones and chest wall: No suspicious bony lesions. Overlying soft tissues appear unremarkable. IMPRESSION: No evidence acute pulmonary process. Dictated by: Declan Gates M.D. on 07/30/2018 at 15:22 ECG Data Attestation: I personally reviewed and interpreted this ECG as follows: Interpretation: EKG 1. Sinus rhythm rate [address] changes no T-wave inversions low voltage noted in lead 3 and AVF EKG 2. Sinus rhythm rate 53 similar to prior no ST changes Discharge Plan Departure Patient Disposition: [facility] Clinical Impression: Acute non-ST elevation myocardial infarction (NSTEMI) Discharge Date/Time: 07/30/18 18:46 Interventions: ED Discharge Assessment Last Done: 07/30/18 18:44 Prescriptions: No Action citalopram [Celexa] 20 MG tablet 20 mg PO QDAY Qty: 90 RF: 3 atenolol 50 mg Tablet 50 mg PO DAILY RF: 0 <Nidhi Nelson DO - Last Filed: 07/31/18 07:42> Cosign ED Attending Cosignature Attestation: I was immediately available in the department for consultation. Documentation has been reviewed. I agree with assessment and plan. I worked alongside Pippa Monroy. Patient's signs and symptoms were concerning. Troponin is positive, then repeat troponin was rising. Patient was started on heparin and given aspirin. Transferred to [facility]. Patient remained stable while in the EDAnd chest pain free.
[2018-07-30 15:16] LABS: CKMB % Relative Index 3.2 % (1.5-5.0); Creatine Kinase MB 4.95 ng/mL (<2.37)
[2018-07-30 16:14] LABS: PTT Partial Thromboplastin Tim 27 SECONDS (26.4-36.2)
[2018-07-30] MEDS: HEPARIN DRIP 25,000 UNIT/500 ML IV.SOLN 20 UNIT IV (16:22)
[2018-07-30] MEDS: SODIUM CHLORIDE 0.9% 1,000 ML 100 ML IV (16:22)
[2018-07-30] MEDS: HEPARIN 5,000 UNIT/ML VIAL 5000 UNIT IV (16:23)
[2018-07-30 16:30] VITALS: BP 126/87; PULSE 59; RESP 11; O2SAT 99
--- NOTE | 2018-07-30 17:20 | PC.NURSE ---
Denies use of any E.D. drugs ever
[2018-07-30 17:30] VITALS: BP 128/84; PULSE 58; RESP 14; O2SAT 98
[2018-07-30 17:55] LABS: Creatine Kinase 156 U/L (55-170)
[2018-07-30 18:00] VITALS: BP 133/92; PULSE 59; RESP 20; O2SAT 98
[2018-07-30 18:10] LABS: CKMB % Relative Index 3.9 % (1.5-5.0); Creatine Kinase MB 6.01 ng/mL (<2.37)
[2018-07-30 18:44] VITALS: BP 133/92; PULSE 60; RESP 17; O2SAT 97
== END 2018-07-30 18:46 | disposition short-term general hospital (02) ==
PROVIDERS: Emergency Provider Nurse Practitioner Family
DX: I21.4 Non-ST elevation (NSTEMI) myocardial infarction (principal)
CPT/HCPCS: 36415; 36591; 71045; 80053; 81003; 82150; 82550; 82553; 83690; 84484; 85025; 85610; 85730; 93005; 93041; 96365; 96366; 96375; 99284; 99285; J1644

== ENCOUNTER 2018-08-15 14:33 | Emergency (ER) | payer OTHER, SELFPAY ==
[2018-08-15] VITALS (10 sets, daily range): BP systolic 106–122; BP diastolic 62–80; PULSE 43–58; RESP 10–19; TEMP 36.3; O2SAT 96–100
--- NOTE | 2018-08-15 14:44 | DI.RAD.S_ITS ---
PROCEDURE: XR CHEST 1V INDICATIONS: chest pain TECHNIQUE: One view of the chest was acquired. COMPARISON: [facility], CR, XR CHEST 1V, 07/30/2018, 15:02. FINDINGS: Surgical changes and devices: None. Lungs and pleura: Lungs are clear. No pleural effusions or pneumothorax. Mediastinum: Mediastinal contours appear normal. Heart size is normal. Bones and chest wall: No suspicious bony lesions. Overlying soft tissues appear unremarkable. IMPRESSION: No acute cardiopulmonary disease process. Dictated by: Micki Mckeon MD, PhD on 08/15/2018 at 15:10 Approved by: Micki Mckeon MD, PhD on 08/15/2018 at 15:11
[2018-08-15 15:00] LABS: Add Manual Diff / Slide Review NO; Basophils Absolute Auto 0 /uL (0-100); Basophils Percent Auto 0.5 % (0-2); Eosinophils Absolute Auto 100 /uL (0-450); Eosinophils Percent Auto 1.5 % (2-4); Hematocrit 43.9 % (41-53); Hemoglobin 14.8 g/dL (13.5-17.5); Lymphocytes Absolute Auto 2400 /uL (1100-4500); Lymphocytes Percent Auto 30.4 % (25-40); Mean Corpuscular HGB Conc 33.7 % (30-36); Mean Corpuscular Hemoglobin 29.5 PG (26-34); Mean Corpuscular Volume 87.7 fL (80-100); Monocytes Absolute Auto 700 /uL (0-900); Monocytes Percent Auto 9.5 % (3-14); Neutrophils Absolute Auto 4600 /uL (1500-7000); Neutrophils Percent Auto 58.1 % (50-75); Platelet Count 335 X10^3/uL (150-400); Red Blood Cell Count 5.01 X10^6/uL (4.5-5.9); Red Cell Distribution Width 12.9 % (11.6-14.8); White Blood Cell Count 7.8 X10^3/uL (4.5-11.0)
[2018-08-15 15:06] LABS: INR 1.1 (0.9-1.3); Prothrombin Time 13.2 SECONDS (10.1-12.7)
[2018-08-15 15:09] LABS: PTT Partial Thromboplastin Tim 31 SECONDS (26.4-36.2)
[2018-08-15 15:10] LABS: Alanine Aminotransferase 51 IU/L (21-72); Albumin 4.8 g/dL (3.5-5.0); Albumin Globulin Ratio 1.5 (1.0-2.8); Alkaline Phosphatase 65 U/L (38-126); Aspartate Aminotransferase 24 IU/L (17-59); BUN Creatinine Ratio 17.5 (6-22); Bilirubin Total 0.7 mg/dL (0.2-1.3); Blood Urea Nitrogen 14 mg/dL (9-20); Calcium 9.5 mg/dL (8.4-10.2); Carbon Dioxide 28 mmol/L (22-32); Chloride 101 mmol/L (98-107); Creatine Kinase 50 U/L (55-170); Estimated Glomerular Filt Rate > 60.0 mL/min (>60); Globulin 3.2 g/dL (1.7-4.1); Glucose 97 mg/dL (70-100); HEMOLYSIS < 15 (0-50); Lipase 83 U/L (23-300); Potassium 4.5 mmol/L (3.4-5.1); Sodium 140 mmol/L (137-145)
[2018-08-15 15:21] LABS: Troponin I 0.052 ng/mL (0.01-0.034)
[2018-08-15] MEDS: ASPIRIN 81 MG TAB PO (15:59)
[2018-08-15] MEDS: MORPHINE 2 MG/ML INJ IV (16:22)
[2018-08-15] MEDS: SODIUM CHLORIDE 0.9% 1,000 ML 1000 ML IV (16:23)
[2018-08-15] MEDS: ONDANSETRON 4 MG/2 ML INJ IV (16:23)
[2018-08-15] MEDS: NITROGLYCERIN 0.4 MG SL TAB SL ×2 (17:12→17:17)
--- NOTE | 2018-08-15 17:43 | ED.CHESTPAIN ---
HPI - Chest Pain <AMADOR Rosenthal-BC - Last Filed: 08/15/18 21:49> General Chief Complaint: Chest Pain Stated Complaint: Chest pain,stent just put in. Time Seen by Provider: 08/15/18 15:03 Source: patient and family Mode of arrival: ambulatory Limitations: no limitations History of Present Illness HPI narrative: The patient is a 42-year-old male who has history of an OM stent last week done at [facility]. He states he has had 2 heart attacks since he was last seen at this facility a week ago. He states he started having chest pain at approximately noon at to 2:30 p.m.. He took 4 total nitro. He has taken 3/4 of an a full-dose aspirin. He denies any fevers nausea vomiting diarrhea. Denies any shortness of breath palpitations. He states that his pain is worse with ambulation and activity. He states that his pain is worse when he walked in, but then improved when he laid down. He denies any shortness of breath, palpitations, swelling of this tremor he has nausea vomiting dizziness or lightheadedness. He is accompanied by his . Related Data Home Medications Medication Instructions Recorded Confirmed atenolol 25 mg PO DAILY 07/30/18 08/15/18 acetaminophen 1,000 mg PO Q6H PRN 08/15/18 08/15/18 albuterol sulfate 2 puff INHALATION Q6H PRN 08/15/18 08/15/18 aspirin 81 mg PO DAILY 08/15/18 08/15/18 atorvastatin 80 mg PO QPM 08/15/18 08/15/18 citalopram [Celexa] 20 mg PO DAILY 08/15/18 08/15/18 clopidogrel 75 mg PO DAILY 08/15/18 08/15/18 losartan 25 mg PO DAILY 08/15/18 08/15/18 Allergies Allergy/AdvReac Type Severity Reaction Status Date / Time bee venom protein (honey bee) Allergy Severe Anaphylaxis Verified 08/15/18 14:43 [BEE VENOM PROTEIN (HONEY BEE)] Review of Systems <YOVANA Rosenthal - Last Filed: 08/15/18 21:49> Review of Systems GENERAL: Denies chills, fatigue, malaise, fever, sweats. HEENT: Denies sinus pain, ear pain, sore throat, difficulty swallowing, dizziness. RESPIRATORY: Denies dyspnea, cough, wheezing, hemoptysis, sputum. CARDIOVASCULAR: See HPI GASTROINTESTINAL: Denies nausea, vomiting, abdominal pain, diarrhea, constipation, melena. : Denies dysuria, frequency, incontinence, hematuria, urinary retention. MUSCULOSKELETAL: denies weakness, joint pain, or bony pain SKIN: Denies rash, skin lesions, or other NEUROLOGIC: Denies weakness, headache, numbness, change in speech, confusion, seizures, incoordination. PSYCHIATRIC: No concerning psychosocial issues. 12 point review of systems is negative except for those stated above PFSH <Pippa Monroy [employer]- - Last Filed: 08/15/18 21:49> Social History Smoking Status: Former smoker Social History Smoking Status: Former smoker Exam <LINDSEY RosenthalP- - Last Filed: 08/15/18 21:49> Narrative Exam Narrative: GENERAL: This is a well-nourished, well-developed patient, with at bedside HEAD: Atraumatic. Normocephalic. No temporal or scalp tenderness. EYES: Pupils equal round and reactive. Extraocular motions intact. No scleral icterus. No injection or drainage. ENT: Nose without bleeding, purulent drainage or septal hematoma. Throat without erythema, tonsillar hypertrophy or exudate. Uvula midline. Airway patent. NECK: Trachea midline. No JVD or lymphadenopathy. Supple, nontender, no meningeal signs. CARDIOVASCULAR: Regular rate and rhythm without murmurs, gallops, or rubs. bradycardic in the 40s. RESPIRATORY: Clear to auscultation. Breath sounds equal bilaterally. No wheezes, rales, or rhonchi. GASTROINTESTINAL: Abdomen soft, non-tender, nondistended. No hepato-splenomegaly, or palpable masses. No guarding. EXTREMITIES: No clubbing, cyanosis, or edema. No joint tenderness, effusion, or edema noted. BACK: Nontender without deformity or crepitance. No flank tenderness. NEURO: AOx3. SKIN: No rash or erythema. Initial Vital Signs Initial Vital Signs: Vital Signs Temperature 97.4 F L 08/15/18 14:37 Pulse Rate 46 L 08/15/18 14:37 Respiratory Rate 18 08/15/18 14:37 Blood Pressure 106/68 08/15/18 14:37 Pulse Oximetry 100 08/15/18 14:37 <Pippa Valladares DO - Last Filed: 08/16/18 09:21> Initial Vital Signs Initial Vital Signs: Vital Signs Temperature 97.4 F L 08/15/18 14:37 Pulse Rate 46 L 08/15/18 14:37 Respiratory Rate 18 08/15/18 14:37 Blood Pressure 106/68 08/15/18 14:37 Pulse Oximetry 100 08/15/18 14:37 Course <AMADOR Rosenthal-BC - Last Filed: 08/15/18 21:49> Course Narrative: The patient did have recurrent chest pain twice throughout his stay in the emergency department. He received 2 doses of nitro as well as 2 mg of morphine. Orders Ordered: Discontinued Medications Aspirin (Aspirin Chew) 81 mg PO NOW ONE Stop: 08/15/18 15:47 Last Admin: 08/15/18 15:59 Dose: 81 mg Sodium Chloride (Normal Saline 0.9%) 1,000 mls @ 1,000 mls/hr IV BOLUS PRN PRN Reason: Fluid replacement Last Infusion: 08/15/18 17:55 Dose: 0 mls/hr Admin: 08/15/18 16:23 Dose: 1,000 mls/hr Morphine Sulfate (Morphine) 2 mg IV NOW ONE Stop: 08/15/18 16:09 Last Admin: 08/15/18 16:22 Dose: 2 mg Nitroglycerin (Nitrostat) 0.4 mg SL [id number] PRN PRN Reason: Chest Pain Last Admin: 08/15/18 17:17 Dose: 0.4 mg Admin: 08/15/18 17:12 Dose: 0.4 mg Ondansetron HCl (Zofran) 4 mg IV NOW ONE Stop: 08/15/18 16:09 Last Admin: 08/15/18 16:23 Dose: 4 mg Vital Signs - 8 hr 08/15/18 14:37 08/15/18 15:24 08/15/18 15:30 Temperature 97.4 F L Pulse Rate 46 L 43 L 49 L Respiratory Rate 18 19 10 L Blood Pressure 106/68 Blood Pressure [Right Arm] 115/80 111/72 Pulse Oximetry 100 100 96 08/15/18 16:00 08/15/18 16:30 08/15/18 17:00 Temperature Pulse Rate 45 L 48 L 54 L Respiratory Rate 16 13 18 Blood Pressure Blood Pressure [Right Arm] 112/70 122/77 Pulse Oximetry 98 99 99 08/15/18 17:12 08/15/18 17:17 08/15/18 17:20 Temperature Pulse Rate 50 L 56 L 58 L Respiratory Rate Blood Pressure 122/77 120/70 115/62 Blood Pressure [Right Arm] Pulse Oximetry 08/15/18 17:40 Temperature Pulse Rate 48 L Respiratory Rate 14 Blood Pressure Blood Pressure [Right Arm] 107/68 Pulse Oximetry 98 <Pippa Valladares DO - Last Filed: 08/16/18 09:21> Orders Ordered: Discontinued Medications Aspirin (Aspirin Chew) 81 mg PO NOW ONE Stop: 08/15/18 15:47 Last Admin: 08/15/18 15:59 Dose: 81 mg Sodium Chloride (Normal Saline 0.9%) 1,000 mls @ 1,000 mls/hr IV BOLUS PRN PRN Reason: Fluid replacement Last Infusion: 08/15/18 17:55 Dose: 0 mls/hr Admin: 08/15/18 16:23 Dose: 1,000 mls/hr Morphine Sulfate (Morphine) 2 mg IV NOW ONE Stop: 08/15/18 16:09 Last Admin: 08/15/18 16:22 Dose: 2 mg Nitroglycerin (Nitrostat) 0.4 mg SL [id number] PRN PRN Reason: Chest Pain Last Admin: 08/15/18 17:17 Dose: 0.4 mg Admin: 08/15/18 17:12 Dose: 0.4 mg Ondansetron HCl (Zofran) 4 mg IV NOW ONE Stop: 08/15/18 16:09 Last Admin: 08/15/18 16:23 Dose: 4 mg Vital Signs - 8 hr 08/15/18 14:37 08/15/18 15:24 08/15/18 15:30 Temperature 97.4 F L Pulse Rate 46 L 43 L 49 L Respiratory Rate 18 19 10 L Blood Pressure 106/68 Blood Pressure [Right Arm] 115/80 111/72 Pulse Oximetry 100 100 96 08/15/18 16:00 08/15/18 16:30 08/15/18 17:00 Temperature Pulse Rate 45 L 48 L 54 L Respiratory Rate 16 13 18 Blood Pressure Blood Pressure [Right Arm] 112/70 122/77 Pulse Oximetry 98 99 99 08/15/18 17:12 08/15/18 17:17 08/15/18 17:20 Temperature Pulse Rate 50 L 56 L 58 L Respiratory Rate Blood Pressure 122/77 120/70 115/62 Blood Pressure [Right Arm] Pulse Oximetry 08/15/18 17:40 Temperature Pulse Rate 48 L Respiratory Rate 14 Blood Pressure Blood Pressure [Right Arm] 107/68 Pulse Oximetry 98 MDM - Chest Pain <AMADOR Rosenthal- - Last Filed: 08/15/18 21:49> Lab Data Result diagrams: 08/15/18 14:45 08/15/18 14:45 Lab Results 08/15/18 08/15/18 08/15/18 Range/Units 14:45 14:45 14:45 WBC 7.8 (4.5-11.0) X10^3/uL RBC 5.01 (4.5-5.9) X10^6/uL Hgb 14.8 (13.5-17.5) g/dL Hct 43.9 (41-53) % MCV 87.7 (80-100) fL MCH 29.5 (26-34) PG MCHC 33.7 (30-36) % RDW 12.9 (11.6-14.8) % Plt Count 335 (150-400) X10^3/uL Neut % (Auto) 58.1 (50-75) % Lymph % (Auto) 30.4 (25-40) % [place] % (Auto) 9.5 (3-14) % Eos % (Auto) 1.5 L (2-4) % Baso % (Auto) 0.5 (0-2) % Neut # (Auto) 4600 (8760-7245) /uL Lymph # (Auto) 2400 (7925-9955) /uL [place] # (Auto) 700 (0-900) /uL Eos # (Auto) 100 (0-450) /uL Baso # (Auto) 0 (0-100) /uL PT 13.2 H (10.1-12.7) SECONDS INR 1.1 (0.9-1.3) APTT 31 D (26.4-36.2) SECONDS Sodium 140 (137-145) mmol/L Potassium 4.5 (3.4-5.1) mmol/L Chloride 101 (98-107) mmol/L Carbon Dioxide 28 (22-32) mmol/L BUN 14 (9-20) mg/dL Creatinine 0.80 (0.66-1.25) mg/dL Estimated GFR > 60.0 (>60) mL/min BUN/Creatinine Ratio 17.5 (6-22) Glucose 97 (70-100) mg/dL Calcium 9.5 (8.4-10.2) mg/dL Total Bilirubin 0.7 (0.2-1.3) mg/dL AST 24 (17-59) IU/L ALT 51 (21-72) IU/L Alkaline Phosphatase 65 (38-126) U/L Total Creatine Kinase 50 L (55-170) U/L CK-MB (CK-2) TNP CK-MB (CK-2) Rel Index TNP Troponin I 0.052 H (0.01-0.034) ng/mL Total Protein 8.0 (6.3-8.2) g/dL Albumin 4.8 (3.5-5.0) g/dL Globulin 3.2 (1.7-4.1) g/dL Albumin/Globulin Ratio 1.5 (1.0-2.8) Lipase 83 (23-300) U/L 08/15/18 08/15/18 Range/Units 17:28 17:28 WBC (4.5-11.0) X10^3/uL RBC (4.5-5.9) X10^6/uL Hgb (13.5-17.5) g/dL Hct (41-53) % MCV (80-100) fL MCH (26-34) PG MCHC (30-36) % RDW (11.6-14.8) % Plt Count (150-400) X10^3/uL Neut % (Auto) (50-75) % Lymph % (Auto) (25-40) % [place] % (Auto) (3-14) % Eos % (Auto) (2-4) % Baso % (Auto) (0-2) % Neut # (Auto) (7233-4404) /uL Lymph # (Auto) (7531-3616) /uL [place] # (Auto) (0-900) /uL Eos # (Auto) (0-450) /uL Baso # (Auto) (0-100) /uL PT (10.1-12.7) SECONDS INR (0.9-1.3) APTT (26.4-36.2) SECONDS Sodium (137-145) mmol/L Potassium (3.4-5.1) mmol/L Chloride (98-107) mmol/L Carbon Dioxide (22-32) mmol/L BUN (9-20) mg/dL Creatinine (0.66-1.25) mg/dL Estimated GFR (>60) mL/min BUN/Creatinine Ratio (6-22) Glucose (70-100) mg/dL Calcium (8.4-10.2) mg/dL Total Bilirubin (0.2-1.3) mg/dL AST (17-59) IU/L ALT (21-72) IU/L Alkaline Phosphatase (38-126) U/L Total Creatine Kinase 45 L (55-170) U/L CK-MB (CK-2) TNP CK-MB (CK-2) Rel Index TNP Troponin I Cancelled 0.070 H (0.01-0.034) ng/mL Total Protein (6.3-8.2) g/dL Albumin (3.5-5.0) g/dL Globulin (1.7-4.1) g/dL Albumin/Globulin Ratio (1.0-2.8) Lipase (23-300) U/L ECG Data Attestation: I personally reviewed and interpreted this ECG as follows: Interpretation: Sinus bradycardia. Ventricular rate 42. No ST elevation or depression. No ectopy noted. [facility] Narrative Medical decision making narrative: The patient is a 42-year-old male who presents with chest pain, borderline troponin and a recent stent. This was a concerning picture, especially given his exertional chest pain. I spoke with Dr. Moore from [facility] who suggested the patient be transferred for admission over there given his chest pain with exertion as well as his recent stent. I spoke with Dr. Motta who is the hospitalist who kindly accepted the patient for admission. He was hemodynamically stable throughout his stay in the emergency department. <Pippa Valladares DO - Last Filed: 08/16/18 09:21> Lab Data Attestation: I reviewed the patient's lab results. Lab Results 08/15/18 08/15/18 08/15/18 Range/Units 14:45 14:45 14:45 WBC 7.8 (4.5-11.0) X10^3/uL RBC 5.01 (4.5-5.9) X10^6/uL Hgb 14.8 (13.5-17.5) g/dL Hct 43.9 (41-53) % MCV 87.7 (80-100) fL MCH 29.5 (26-34) PG MCHC 33.7 (30-36) % RDW 12.9 (11.6-14.8) % Plt Count 335 (150-400) X10^3/uL Neut % (Auto) 58.1 (50-75) % Lymph % (Auto) 30.4 (25-40) % [place] % (Auto) 9.5 (3-14) % Eos % (Auto) 1.5 L (2-4) % Baso % (Auto) 0.5 (0-2) % Neut # (Auto) 4600 (0966-5537) /uL Lymph # (Auto) 2400 (8271-6832) /uL [place] # (Auto) 700 (0-900) /uL Eos # (Auto) 100 (0-450) /uL Baso # (Auto) 0 (0-100) /uL PT 13.2 H (10.1-12.7) SECONDS INR 1.1 (0.9-1.3) APTT 31 D (26.4-36.2) SECONDS Sodium 140 (137-145) mmol/L Potassium 4.5 (3.4-5.1) mmol/L Chloride 101 (98-107) mmol/L Carbon Dioxide 28 (22-32) mmol/L BUN 14 (9-20) mg/dL Creatinine 0.80 (0.66-1.25) mg/dL Estimated GFR > 60.0 (>60) mL/min BUN/Creatinine Ratio 17.5 (6-22) Glucose 97 (70-100) mg/dL Calcium 9.5 (8.4-10.2) mg/dL Total Bilirubin 0.7 (0.2-1.3) mg/dL AST 24 (17-59) IU/L ALT 51 (21-72) IU/L Alkaline Phosphatase 65 (38-126) U/L Total Creatine Kinase 50 L (55-170) U/L CK-MB (CK-2) TNP CK-MB (CK-2) Rel Index TNP Troponin I 0.052 H (0.01-0.034) ng/mL Total Protein 8.0 (6.3-8.2) g/dL Albumin 4.8 (3.5-5.0) g/dL Globulin 3.2 (1.7-4.1) g/dL Albumin/Globulin Ratio 1.5 (1.0-2.8) Lipase 83 (23-300) U/L 08/15/18 08/15/18 Range/Units 17:28 17:28 WBC (4.5-11.0) X10^3/uL RBC (4.5-5.9) X10^6/uL Hgb (13.5-17.5) g/dL Hct (41-53) % MCV (80-100) fL MCH (26-34) PG MCHC (30-36) % RDW (11.6-14.8) % Plt Count (150-400) X10^3/uL Neut % (Auto) (50-75) % Lymph % (Auto) (25-40) % [place] % (Auto) (3-14) % Eos % (Auto) (2-4) % Baso % (Auto) (0-2) % Neut # (Auto) (8820-4383) /uL Lymph # (Auto) (6843-8041) /uL [place] # (Auto) (0-900) /uL Eos # (Auto) (0-450) /uL Baso # (Auto) (0-100) /uL PT (10.1-12.7) SECONDS INR (0.9-1.3) APTT (26.4-36.2) SECONDS Sodium (137-145) mmol/L Potassium (3.4-5.1) mmol/L Chloride (98-107) mmol/L Carbon Dioxide (22-32) mmol/L BUN (9-20) mg/dL Creatinine (0.66-1.25) mg/dL Estimated GFR (>60) mL/min BUN/Creatinine Ratio (6-22) Glucose (70-100) mg/dL Calcium (8.4-10.2) mg/dL Total Bilirubin (0.2-1.3) mg/dL AST (17-59) IU/L ALT (21-72) IU/L Alkaline Phosphatase (38-126) U/L Total Creatine Kinase 45 L (55-170) U/L CK-MB (CK-2) TNP CK-MB (CK-2) Rel Index TNP Troponin I Cancelled 0.070 H (0.01-0.034) ng/mL Total Protein (6.3-8.2) g/dL Albumin (3.5-5.0) g/dL Globulin (1.7-4.1) g/dL Albumin/Globulin Ratio (1.0-2.8) Lipase (23-300) U/L ECG Data Attestation: I personally reviewed and interpreted this ECG as follows: Prior ECG tracings: not available for review Interpretation: A sinus bradycardia, no ST elevation or depression is noted. No heart block noted. EKG #2, right sided, No ST changes. sinus oneal cardia. Rate of 56, pr of 177, qrs of 106, qtc of 394. Discharge Plan Departure Patient Disposition: [facility] Clinical Impression: Elevated troponin Chest pain Qualifiers: Chest pain type: unspecified Qualified Code(s): R07.9 - Chest pain, unspecified Discharge Date/Time: 08/15/18 17:45 Interventions: ED Discharge Assessment Last Done: 08/15/18 17:40 Prescriptions: No Action atenolol 50 mg Tablet 25 mg PO DAILY RF: 0 atorvastatin 80 mg tablet 80 mg PO QPM RF: 0 clopidogrel 75 mg tablet 75 mg PO DAILY RF: 0 losartan 25 mg tablet 25 mg PO DAILY RF: 0 albuterol sulfate 90 mcg/actuation HFA aerosol inhaler 2 puff Inhalation Q6H PRN (Reason: Shortness Of Breath) RF: 0 citalopram [Celexa] 20 MG tablet 20 mg PO DAILY RF: 0 aspirin 81 mg Tablet,Delayed Release (Dr/Ec) 81 mg PO DAILY RF: 0 acetaminophen 500 mg Tablet 1,000 mg PO Q6H PRN (Reason: pain) RF: 0 Referrals: Feliz Haney MD [Primary Care Provider] - <Pippa Valladares DO - Last Filed: 08/16/18 09:21> Cosign ED Attending Cosignature Attestation: I was immediately available in the department for consultation, case was discussed. EKG reviewed. This documentation has been reviewed and I agree with assessment and plan. Supervised by Pippa Valladares DO
--- NOTE | 2018-08-15 17:46 | ED_ITS ---
HPI - Chest Pain <AMADOR Rosenthal-BC - Last Filed: 08/15/18 21:49> General Chief Complaint: Chest Pain Stated Complaint: Chest pain,stent just put in. Time Seen by Provider: 08/15/18 15:03 Source: patient and family Mode of arrival: ambulatory Limitations: no limitations History of Present Illness HPI narrative: The patient is a 42-year-old male who has history of an OM stent last week done at [facility]. He states he has had 2 heart attacks since he was last seen at this facility a week ago. He states he started having chest pain at approximately noon at to 2:30 p.m.. He took 4 total nitro. He has taken 3/4 of an a full-dose aspirin. He denies any fevers nausea vomiting diarrhea. Denies any shortness of breath palpitations. He states that his pain is worse with ambulation and activity. He states that his pain is worse when he walked in, but then improved when he laid down. He denies any shortness of breath, palpitations, swelling of this tremor he has nausea vomiting dizziness or lightheadedness. He is accompanied by his . Related Data Home Medications Medication Instructions Recorded Confirmed atenolol 25 mg PO DAILY 07/30/18 08/15/18 acetaminophen 1,000 mg PO Q6H PRN 08/15/18 08/15/18 albuterol sulfate 2 puff INHALATION Q6H PRN 08/15/18 08/15/18 aspirin 81 mg PO DAILY 08/15/18 08/15/18 atorvastatin 80 mg PO QPM 08/15/18 08/15/18 citalopram [Celexa] 20 mg PO DAILY 08/15/18 08/15/18 clopidogrel 75 mg PO DAILY 08/15/18 08/15/18 losartan 25 mg PO DAILY 08/15/18 08/15/18 Allergies Allergy/AdvReac Type Severity Reaction Status Date / Time bee venom protein (honey bee) Allergy Severe Anaphylaxis Verified 08/15/18 14:43 [BEE VENOM PROTEIN (HONEY BEE)] Review of Systems <YOVANA Rosenthal - Last Filed: 08/15/18 21:49> Review of Systems GENERAL: Denies chills, fatigue, malaise, fever, sweats. HEENT: Denies sinus pain, ear pain, sore throat, difficulty swallowing, dizziness. RESPIRATORY: Denies dyspnea, cough, wheezing, hemoptysis, sputum. CARDIOVASCULAR: See HPI GASTROINTESTINAL: Denies nausea, vomiting, abdominal pain, diarrhea, constipation, melena. : Denies dysuria, frequency, incontinence, hematuria, urinary retention. MUSCULOSKELETAL: denies weakness, joint pain, or bony pain SKIN: Denies rash, skin lesions, or other NEUROLOGIC: Denies weakness, headache, numbness, change in speech, confusion, seizures, incoordination. PSYCHIATRIC: No concerning psychosocial issues. 12 point review of systems is negative except for those stated above PFSH <Pippa Monroy [employer] TEST ENGINEER- - Last Filed: 08/15/18 21:49> Social History Smoking Status: Former smoker Social History Smoking Status: Former smoker Exam <LINDSEY RosenthalP- - Last Filed: 08/15/18 21:49> Narrative Exam Narrative: GENERAL: This is a well-nourished, well-developed patient, with at bedside HEAD: Atraumatic. Normocephalic. No temporal or scalp tenderness. EYES: Pupils equal round and reactive. Extraocular motions intact. No scleral icterus. No injection or drainage. ENT: Nose without bleeding, purulent drainage or septal hematoma. Throat without erythema, tonsillar hypertrophy or exudate. Uvula midline. Airway patent. NECK: Trachea midline. No JVD or lymphadenopathy. Supple, nontender, no meningeal signs. CARDIOVASCULAR: Regular rate and rhythm without murmurs, gallops, or rubs. bradycardic in the 40s. RESPIRATORY: Clear to auscultation. Breath sounds equal bilaterally. No wheezes, rales, or rhonchi. GASTROINTESTINAL: Abdomen soft, non-tender, nondistended. No hepato- splenomegaly, or palpable masses. No guarding. EXTREMITIES: No clubbing, cyanosis, or edema. No joint tenderness, effusion, or edema noted. BACK: Nontender without deformity or crepitance. No flank tenderness. NEURO: AOx3. SKIN: No rash or erythema. Initial Vital Signs Initial Vital Signs: Vital Signs Temperature 97.4 F L 08/15/18 14:37 Pulse Rate 46 L 08/15/18 14:37 Respiratory Rate 18 08/15/18 14:37 Blood Pressure 106/68 08/15/18 14:37 Pulse Oximetry 100 08/15/18 14:37 <Pippa Valladares DO - Last Filed: 08/16/18 09:21> Initial Vital Signs Initial Vital Signs: Vital Signs Temperature 97.4 F L 08/15/18 14:37 Pulse Rate 46 L 08/15/18 14:37 Respiratory Rate 18 08/15/18 14:37 Blood Pressure 106/68 08/15/18 14:37 Pulse Oximetry 100 08/15/18 14:37 Course <AMADOR Rosenthal-BC - Last Filed: 08/15/18 21:49> Course Narrative: The patient did have recurrent chest pain twice throughout his stay in the emergency department. He received 2 doses of nitro as well as 2 mg of morphine. Orders Ordered: Discontinued Medications Aspirin (Aspirin Chew) 81 mg PO NOW ONE Stop: 08/15/18 15:47 Last Admin: 08/15/18 15:59 Dose: 81 mg Sodium Chloride (Normal Saline 0.9%) 1,000 mls @ 1,000 mls/hr IV BOLUS PRN PRN Reason: Fluid replacement Last Infusion: 08/15/18 17:55 Dose: 0 mls/hr Admin: 08/15/18 16:23 Dose: 1,000 mls/hr Morphine Sulfate (Morphine) 2 mg IV NOW ONE Stop: 08/15/18 16:09 Last Admin: 08/15/18 16:22 Dose: 2 mg Nitroglycerin (Nitrostat) 0.4 mg SL [id number] PRN PRN Reason: Chest Pain Last Admin: 08/15/18 17:17 Dose: 0.4 mg Admin: 08/15/18 17:12 Dose: 0.4 mg Ondansetron HCl (Zofran) 4 mg IV NOW ONE Stop: 08/15/18 16:09 Last Admin: 08/15/18 16:23 Dose: 4 mg Vital Signs - 8 hr 08/15/18 14:37 08/15/18 15:24 08/15/18 15:30 Temperature 97.4 F L Pulse Rate 46 L 43 L 49 L Respiratory Rate 18 19 10 L Blood Pressure 106/68 Blood Pressure [Right Arm] 115/80 111/72 Pulse Oximetry 100 100 96 08/15/18 16:00 08/15/18 16:30 08/15/18 17:00 Temperature Pulse Rate 45 L 48 L 54 L Respiratory Rate 16 13 18 Blood Pressure Blood Pressure [Right Arm] 112/70 122/77 Pulse Oximetry 98 99 99 08/15/18 17:12 08/15/18 17:17 08/15/18 17:20 Temperature Pulse Rate 50 L 56 L 58 L Respiratory Rate Blood Pressure 122/77 120/70 115/62 Blood Pressure [Right Arm] Pulse Oximetry 08/15/18 17:40 Temperature Pulse Rate 48 L Respiratory Rate 14 Blood Pressure Blood Pressure [Right Arm] 107/68 Pulse Oximetry 98 <Pippa Valladares DO - Last Filed: 08/16/18 09:21> Orders Ordered: Discontinued Medications Aspirin (Aspirin Chew) 81 mg PO NOW ONE Stop: 08/15/18 15:47 Last Admin: 08/15/18 15:59 Dose: 81 mg Sodium Chloride (Normal Saline 0.9%) 1,000 mls @ 1,000 mls/hr IV BOLUS PRN PRN Reason: Fluid replacement Last Infusion: 08/15/18 17:55 Dose: 0 mls/hr Admin: 08/15/18 16:23 Dose: 1,000 mls/hr Morphine Sulfate (Morphine) 2 mg IV NOW ONE Stop: 08/15/18 16:09 Last Admin: 08/15/18 16:22 Dose: 2 mg Nitroglycerin (Nitrostat) 0.4 mg SL [id number] PRN PRN Reason: Chest Pain Last Admin: 08/15/18 17:17 Dose: 0.4 mg Admin: 08/15/18 17:12 Dose: 0.4 mg Ondansetron HCl (Zofran) 4 mg IV NOW ONE Stop: 08/15/18 16:09 Last Admin: 08/15/18 16:23 Dose: 4 mg Vital Signs - 8 hr 08/15/18 14:37 08/15/18 15:24 08/15/18 15:30 Temperature 97.4 F L Pulse Rate 46 L 43 L 49 L Respiratory Rate 18 19 10 L Blood Pressure 106/68 Blood Pressure [Right Arm] 115/80 111/72 Pulse Oximetry 100 100 96 08/15/18 16:00 08/15/18 16:30 08/15/18 17:00 Temperature Pulse Rate 45 L 48 L 54 L Respiratory Rate 16 13 18 Blood Pressure Blood Pressure [Right Arm] 112/70 122/77 Pulse Oximetry 98 99 99 08/15/18 17:12 08/15/18 17:17 08/15/18 17:20 Temperature Pulse Rate 50 L 56 L 58 L Respiratory Rate Blood Pressure 122/77 120/70 115/62 Blood Pressure [Right Arm] Pulse Oximetry 08/15/18 17:40 Temperature Pulse Rate 48 L Respiratory Rate 14 Blood Pressure Blood Pressure [Right Arm] 107/68 Pulse Oximetry 98 MDM - Chest Pain <AMADOR Rosenthal- - Last Filed: 08/15/18 21:49> Lab Data Result diagrams: 08/15/18 14:45 08/15/18 14:45 Lab Results 08/15/18 08/15/18 08/15/18 Range/Units 14:45 14:45 14:45 WBC 7.8 (4.5-11.0) X10^3/uL RBC 5.01 (4.5-5.9) X10^6/uL Hgb 14.8 (13.5-17.5) g/dL Hct 43.9 (41-53) % MCV 87.7 (80-100) fL MCH 29.5 (26-34) PG MCHC 33.7 (30-36) % RDW 12.9 (11.6-14.8) % Plt Count 335 (150-400) X10^3/uL Neut % (Auto) 58.1 (50-75) % Lymph % (Auto) 30.4 (25-40) % [place] % (Auto) 9.5 (3-14) % Eos % (Auto) 1.5 L (2-4) % Baso % (Auto) 0.5 (0-2) % Neut # (Auto) 4600 (3564-4257) /uL Lymph # (Auto) 2400 (4415-6453) /uL [place] # (Auto) 700 (0-900) /uL Eos # (Auto) 100 (0-450) /uL Baso # (Auto) 0 (0-100) /uL PT 13.2 H (10.1-12.7) SECONDS INR 1.1 (0.9-1.3) APTT 31 D (26.4-36.2) SECONDS Sodium 140 (137-145) mmol/L Potassium 4.5 (3.4-5.1) mmol/L Chloride 101 (98-107) mmol/L Carbon Dioxide 28 (22-32) mmol/L BUN 14 (9-20) mg/dL Creatinine 0.80 (0.66-1.25) mg/dL Estimated GFR > 60.0 (>60) mL/min BUN/Creatinine Ratio 17.5 (6-22) Glucose 97 (70-100) mg/dL Calcium 9.5 (8.4-10.2) mg/dL Total Bilirubin 0.7 (0.2-1.3) mg/dL AST 24 (17-59) IU/L ALT 51 (21-72) IU/L Alkaline Phosphatase 65 (38-126) U/L Total Creatine Kinase 50 L (55-170) U/L CK-MB (CK-2) TNP CK-MB (CK-2) Rel Index TNP Troponin I 0.052 H (0.01-0.034) ng/mL Total Protein 8.0 (6.3-8.2) g/dL Albumin 4.8 (3.5-5.0) g/dL Globulin 3.2 (1.7-4.1) g/dL Albumin/Globulin Ratio 1.5 (1.0-2.8) Lipase 83 (23-300) U/L 08/15/18 08/15/18 Range/Units 17:28 17:28 WBC (4.5-11.0) X10^3/uL RBC (4.5-5.9) X10^6/uL Hgb (13.5-17.5) g/dL Hct (41-53) % MCV (80-100) fL MCH (26-34) PG MCHC (30-36) % RDW (11.6-14.8) % Plt Count (150-400) X10^3/uL Neut % (Auto) (50-75) % Lymph % (Auto) (25-40) % [place] % (Auto) (3-14) % Eos % (Auto) (2-4) % Baso % (Auto) (0-2) % Neut # (Auto) (0457-6965) /uL Lymph # (Auto) (9391-2706) /uL [place] # (Auto) (0-900) /uL Eos # (Auto) (0-450) /uL Baso # (Auto) (0-100) /uL PT (10.1-12.7) SECONDS INR (0.9-1.3) APTT (26.4-36.2) SECONDS Sodium (137-145) mmol/L Potassium (3.4-5.1) mmol/L Chloride (98-107) mmol/L Carbon Dioxide (22-32) mmol/L BUN (9-20) mg/dL Creatinine (0.66-1.25) mg/dL Estimated GFR (>60) mL/min BUN/Creatinine Ratio (6-22) Glucose (70-100) mg/dL Calcium (8.4-10.2) mg/dL Total Bilirubin (0.2-1.3) mg/dL AST (17-59) IU/L ALT (21-72) IU/L Alkaline Phosphatase (38-126) U/L Total Creatine Kinase 45 L (55-170) U/L CK-MB (CK-2) TNP CK-MB (CK-2) Rel Index TNP Troponin I Cancelled 0.070 H (0.01-0.034) ng/mL Total Protein (6.3-8.2) g/dL Albumin (3.5-5.0) g/dL Globulin (1.7-4.1) g/dL Albumin/Globulin Ratio (1.0-2.8) Lipase (23-300) U/L ECG Data Attestation: I personally reviewed and interpreted this ECG as follows: Interpretation: Sinus bradycardia. Ventricular rate 42. No ST elevation or depression. No ectopy noted. [facility] Narrative Medical decision making narrative: The patient is a 42-year-old male who presents with chest pain, borderline troponin and a recent stent. This was a concerning picture, especially given his exertional chest pain. I spoke with Dr. Moore from [facility] who suggested the patient be transferred for admission over there given his chest pain with exertion as well as his recent stent. I spoke with Dr. Motta who is the hospitalist who kindly accepted the patient for admission. He was hemodynamically stable throughout his stay in the emergency department. <Pippa Valladares DO - Last Filed: 08/16/18 09:21> Lab Data Attestation: I reviewed the patient's lab results. Lab Results 08/15/18 08/15/18 08/15/18 Range/Units 14:45 14:45 14:45 WBC 7.8 (4.5-11.0) X10^3/uL RBC 5.01 (4.5-5.9) X10^6/uL Hgb 14.8 (13.5-17.5) g/dL Hct 43.9 (41-53) % MCV 87.7 (80-100) fL MCH 29.5 (26-34) PG MCHC 33.7 (30-36) % RDW 12.9 (11.6-14.8) % Plt Count 335 (150-400) X10^3/uL Neut % (Auto) 58.1 (50-75) % Lymph % (Auto) 30.4 (25-40) % [place] % (Auto) 9.5 (3-14) % Eos % (Auto) 1.5 L (2-4) % Baso % (Auto) 0.5 (0-2) % Neut # (Auto) 4600 (1547-9157) /uL Lymph # (Auto) 2400 (1938-3679) /uL [place] # (Auto) 700 (0-900) /uL Eos # (Auto) 100 (0-450) /uL Baso # (Auto) 0 (0-100) /uL PT 13.2 H (10.1-12.7) SECONDS INR 1.1 (0.9-1.3) APTT 31 D (26.4-36.2) SECONDS Sodium 140 (137-145) mmol/L Potassium 4.5 (3.4-5.1) mmol/L Chloride 101 (98-107) mmol/L Carbon Dioxide 28 (22-32) mmol/L BUN 14 (9-20) mg/dL Creatinine 0.80 (0.66-1.25) mg/dL Estimated GFR > 60.0 (>60) mL/min BUN/Creatinine Ratio 17.5 (6-22) Glucose 97 (70-100) mg/dL Calcium 9.5 (8.4-10.2) mg/dL Total Bilirubin 0.7 (0.2-1.3) mg/dL AST 24 (17-59) IU/L ALT 51 (21-72) IU/L Alkaline Phosphatase 65 (38-126) U/L Total Creatine Kinase 50 L (55-170) U/L CK-MB (CK-2) TNP CK-MB (CK-2) Rel Index TNP Troponin I 0.052 H (0.01-0.034) ng/mL Total Protein 8.0 (6.3-8.2) g/dL Albumin 4.8 (3.5-5.0) g/dL Globulin 3.2 (1.7-4.1) g/dL Albumin/Globulin Ratio 1.5 (1.0-2.8) Lipase 83 (23-300) U/L 08/15/18 08/15/18 Range/Units 17:28 17:28 WBC (4.5-11.0) X10^3/uL RBC (4.5-5.9) X10^6/uL Hgb (13.5-17.5) g/dL Hct (41-53) % MCV (80-100) fL MCH (26-34) PG MCHC (30-36) % RDW (11.6-14.8) % Plt Count (150-400) X10^3/uL Neut % (Auto) (50-75) % Lymph % (Auto) (25-40) % [place] % (Auto) (3-14) % Eos % (Auto) (2-4) % Baso % (Auto) (0-2) % Neut # (Auto) (8786-3785) /uL Lymph # (Auto) (9367-1675) /uL [place] # (Auto) (0-900) /uL Eos # (Auto) (0-450) /uL Baso # (Auto) (0-100) /uL PT (10.1-12.7) SECONDS INR (0.9-1.3) APTT (26.4-36.2) SECONDS Sodium (137-145) mmol/L Potassium (3.4-5.1) mmol/L Chloride (98-107) mmol/L Carbon Dioxide (22-32) mmol/L BUN (9-20) mg/dL Creatinine (0.66-1.25) mg/dL Estimated GFR (>60) mL/min BUN/Creatinine Ratio (6-22) Glucose (70-100) mg/dL Calcium (8.4-10.2) mg/dL Total Bilirubin (0.2-1.3) mg/dL AST (17-59) IU/L ALT (21-72) IU/L Alkaline Phosphatase (38-126) U/L Total Creatine Kinase 45 L (55-170) U/L CK-MB (CK-2) TNP CK-MB (CK-2) Rel Index TNP Troponin I Cancelled 0.070 H (0.01-0.034) ng/mL Total Protein (6.3-8.2) g/dL Albumin (3.5-5.0) g/dL Globulin (1.7-4.1) g/dL Albumin/Globulin Ratio (1.0-2.8) Lipase (23-300) U/L ECG Data Attestation: I personally reviewed and interpreted this ECG as follows: Prior ECG tracings: not available for review Interpretation: A sinus bradycardia, no ST elevation or depression is noted. No heart block noted. EKG #2, right sided, No ST changes. sinus oneal cardia. Rate of 56, pr of 177, qrs of 106, qtc of 394. Discharge Plan Departure Patient Disposition: [facility] Clinical Impression: Elevated troponin Chest pain Qualifiers: Chest pain type: unspecified Qualified Code(s): R07.9 - Chest pain, unspecified Discharge Date/Time: 08/15/18 17:45 Interventions: ED Discharge Assessment Last Done: 08/15/18 17:40 Prescriptions: No Action atenolol 50 mg Tablet 25 mg PO DAILY RF: 0 atorvastatin 80 mg tablet 80 mg PO QPM RF: 0 clopidogrel 75 mg tablet 75 mg PO DAILY RF: 0 losartan 25 mg tablet 25 mg PO DAILY RF: 0 albuterol sulfate 90 mcg/actuation HFA aerosol inhaler 2 puff Inhalation Q6H PRN (Reason: Shortness Of Breath) RF: 0 citalopram [Celexa] 20 MG tablet 20 mg PO DAILY RF: 0 aspirin 81 mg Tablet,Delayed Release (Dr/Ec) 81 mg PO DAILY RF: 0 acetaminophen 500 mg Tablet 1,000 mg PO Q6H PRN (Reason: pain) RF: 0 Referrals: Feliz Haney MD [Primary Care Provider] - <Pippa Valladares DO - Last Filed: 08/16/18 09:21> Cosign ED Attending Cosignature Attestation: I was immediately available in the department for consultation, case was discussed. EKG reviewed. This documentation has been reviewed and I agree with assessment and plan. Supervised by Pippa Valladares DO
[2018-08-15 17:54] LABS: Creatine Kinase 45 U/L (55-170)
== END 2018-08-15 17:45 | disposition short-term general hospital (02) ==
PROVIDERS: Emergency Medicine; Emergency Provider Nurse Practitioner Family; Family Provider Internal Medicine Cardiovascular Disease; PCP Family Medicine
DX: R74.8 Abnormal levels of other serum enzymes (principal); R07.9 Chest pain, unspecified
CPT/HCPCS: 36415; 36591; 71045; 80053; 82550; 83690; 84484; 85025; 85610; 85730; 93005; 93010; 96361; 96374; 96375; 99284; 99285; J2270; J2405